=== PATIENT | male | born 1945 | race Caucasian/White ===

== ENCOUNTER 2022-02-04 07:50 | Observation (INO) ==
[2022-02-04] MEDS ORDERED: ASPIRIN 325 MG TABLET PO STA (07:59)
[2022-02-04] MEDS ORDERED: FAMOTIDINE 20 MG/2 ML VIAL IV STA (08:23)
[2022-02-04] MEDS ORDERED: MORPHINE 10 MG/1 ML VIAL IV STA (08:23)
[2022-02-04] MEDS ORDERED: ONDANSETRON 4 MG/2 ML VIAL IV STA (08:23)
[2022-02-04] MEDS ORDERED: MORPHINE 2 MG/1 ML SYRINGE IV STA (08:24)
[2022-02-04 08:32] LABS: Basophils % 0.5 % (0.0-0.8); Eosinophils % 0.9 % (0.00-10.9); Hematocrit 40.6 VOL% (42.0-52.0); Hemoglobin 13.5 GM/DL (14.0-18.0); Immature Granulocytes % 0.5 %; Immature Granulocytes Absolute 0.02 #; Lymphocytes # 1.1 10*3/uL (1.4-4.0); Lymphocytes % 25.5 % (21.2-54.2); Mean Corpuscular HGB Conc 33.3 GM/DL (32-36); Mean Corpuscular Volume 88.1 FL (87-102); Mean Platelet Volume 9.9 FL (9.6-12.0); Monocytes # 0.3 10*3/uL (0.11-0.8); Neutrophils % 65.6 % (38.7-73.9); Red Blood Count 4.61 MC/CUMM (3.8-5.5); Red Cell Distribution Width 13.2 % (9.3-17.3); White Blood Count 4.4 T/CUMM (4-12)
[2022-02-04 08:34] LABS: Platelet Count 135 T/CUMM (130-400)
[2022-02-04 08:44] LABS: PT Patient Result 11.3 SECS (10.1-12.1); Partial Thromboplastin Time 34.7 SECS (23.7-32.9)
[2022-02-04 08:54] LABS: Albumin 4.7 G/DL (3.4-5.0); Bilirubin,Total 0.9 MG/DL (0.20-1.00); Osmolality,Calculated 284.4 MOS/KG (273-304); Total Protein 7.7 G/DL (6.4-8.2)
[2022-02-04] MEDS ORDERED: DEXTROSE 10% 250 ML BAG IV PRN (11:57)
[2022-02-04] MEDS ORDERED: ACETAMINOPHEN 325 MG TABLET PO PRN (11:57)
[2022-02-04] MEDS ORDERED: ONDANSETRON 4 MG/2 ML VIAL IV PRN (11:57)
[2022-02-04] MEDS: INSULIN LISPRO 100 UNIT/ML SUBCUT SCH ×3 (11:57→20:46)
[2022-02-04] MEDS ORDERED: GLUCAGON 1 MG VIAL IM PRN (11:57)
[2022-02-04] MEDS: SODIUM CHLORIDE 0.9% 1,000 ML IV SCH ×2 (12:30→20:43)
[2022-02-04] MEDS ORDERED: ALUM/MAG/SIMETH/LIDO VISC 1:1 30 ML BOTTLE PO ONE (14:34)
[2022-02-04] MEDS: GABAPENTIN 600 MG TABLET PO SCH ×2 (14:51→20:45)
[2022-02-04] MEDS: PANTOPRAZOLE 40 MG TABLET PO SCH (20:45)
[2022-02-04] MEDS: DOCUSATE SODIUM 100 MG CAPSULE PO SCH (20:46)
[2022-02-04] MEDS: amLODIPine 5 MG TABLET PO SCH (20:46)
[2022-02-04] MEDS: INSULIN GLARGINE 100 UNIT/ML SUBCUT SCH (20:48)
[2022-02-05 06:03] LABS: Calcium 8.5 MG/DL (8.5-10.1); Osmolality,Calculated 289.8 MOS/KG (273-304); Potassium 4.4 MMOL/L (3.5-5.1)
[2022-02-05 06:05] LABS: Albumin 3.4 G/DL (3.4-5.0); Bilirubin,Total 0.7 MG/DL (0.20-1.00); Calcium 8.7 MG/DL (8.5-10.1); Osmolality,Calculated 289.8 MOS/KG (273-304); Potassium 4.5 MMOL/L (3.5-5.1); Total Protein 6.5 G/DL (6.4-8.2)
[2022-02-05] MEDS ORDERED: DIAZEPAM 5 MG TABLET PO ONE (07:45)
[2022-02-05] MEDS ORDERED: diphenhydrAMINE CAP 50 MG CAPSULE PO ONE (07:46)
[2022-02-05] MEDS ORDERED: HEPARIN/NACL 0.9% 2 UNITS/ML 2,000 UNIT/1,000 ML BAG IV ONE (07:55)
[2022-02-05] MEDS: GABAPENTIN 600 MG TABLET PO SCH ×2 (08:02→21:32)
[2022-02-05] MEDS ORDERED: fentaNYL 100 MCG/2 ML VIAL ONE (08:02)
[2022-02-05] MEDS ORDERED: MIDAZOLAM 2 MG/2 ML VIAL ONE ×2 (08:02→08:36)
[2022-02-05] MEDS: TRIAMTERENE/HCTZ 37.5-25 MG TABLET PO SCH (08:02)
[2022-02-05] MEDS: PANTOPRAZOLE 40 MG TABLET PO SCH ×2 (08:03→21:32)
[2022-02-05] MEDS: ASPIRIN EC 81 MG TABLET PO SCH (08:03)
[2022-02-05] MEDS: amLODIPine 5 MG TABLET PO SCH ×2 (08:03→21:32)
[2022-02-05] MEDS: LOSARTAN 50 MG TABLET PO SCH (08:03)
[2022-02-05] MEDS: DOCUSATE SODIUM 100 MG CAPSULE PO SCH ×2 (08:03→21:32)
[2022-02-05] MEDS: ROSUVASTATIN 10 MG TABLET PO SCH (08:03)
[2022-02-05] MEDS: INSULIN LISPRO 100 UNIT/ML SUBCUT SCH ×4 (08:08→21:34)
[2022-02-05] MEDS: SODIUM CHLORIDE 0.9% 1,000 ML IV SCH ×3 (08:09→21:35)
[2022-02-05] MEDS ORDERED: NITROGLYCERIN DRIP 50 MG/250 ML BOTTLE IV ONE (08:18)
[2022-02-05] MEDS ORDERED: VERAPAMIL 5 MG/2 ML VIAL ONE (08:18)
[2022-02-05] MEDS ORDERED: HEPARIN 5,000 UNIT/1 ML VIAL ONE (08:28)
[2022-02-05] MEDS ORDERED: PANTOPRAZOLE 40 MG TABLET PO SCH (09:00)
[2022-02-05] MEDS: INSULIN GLARGINE 100 UNIT/ML SUBCUT SCH (21:35)
[2022-02-06] MEDS: SODIUM CHLORIDE 0.9% 1,000 ML IV SCH (00:15)
[2022-02-06 06:17] LABS: Calcium 8.4 MG/DL (8.5-10.1); Osmolality,Calculated 288.3 MOS/KG (273-304); Potassium 4.2 MMOL/L (3.5-5.1)
[2022-02-06 07:21] LABS: Basophils % 0.6 % (0.0-0.8); Eosinophils # 0.1 10*3/uL (0.0-0.87); Hematocrit 36.1 VOL% (42.0-52.0); Hemoglobin 11.7 GM/DL (14.0-18.0); Immature Granulocytes % 0.3 %; Immature Granulocytes Absolute 0.01 #; Lymphocytes # 0.9 10*3/uL (1.4-4.0); Lymphocytes % 28.5 % (21.2-54.2); Mean Corpuscular HGB Conc 32.4 GM/DL (32-36); Mean Corpuscular Volume 90.3 FL (87-102); Mean Platelet Volume 10.2 FL (9.6-12.0); Monocytes # 0.3 10*3/uL (0.11-0.8); Monocytes % 9.7 % (1.7-12.7); Neutrophils % 57.9 % (38.7-73.9); Platelet Count 109 T/CUMM (130-400); Red Cell Distribution Width 13.1 % (9.3-17.3); White Blood Count 3.3 T/CUMM (4-12)
[2022-02-06 07:38] LABS: Hypochromia Slight; Microcytosis Slight
[2022-02-06] MEDS: INSULIN LISPRO 100 UNIT/ML SUBCUT SCH ×2 (07:38→13:01)
[2022-02-06] MEDS ORDERED: LACTATED RINGERS 1,000 ML IV SCH (08:00)
[2022-02-06] MEDS ORDERED: LIDOCAINE 2% 5 ML VIAL ONE (08:42)
[2022-02-06] MEDS ORDERED: propofoL 200 MG/20 ML VIAL IV ONE (08:42)
[2022-02-06] MEDS: ASPIRIN EC 81 MG TABLET PO SCH (09:33)
[2022-02-06] MEDS: ROSUVASTATIN 10 MG TABLET PO SCH (09:55)
[2022-02-06] MEDS: amLODIPine 5 MG TABLET PO SCH (09:55)
[2022-02-06] MEDS: GABAPENTIN 600 MG TABLET PO SCH (09:55)
[2022-02-06] MEDS: PANTOPRAZOLE 40 MG TABLET PO SCH (09:55)
[2022-02-06] MEDS: LOSARTAN 50 MG TABLET PO SCH (09:55)
[2022-02-06] MEDS: DOCUSATE SODIUM 100 MG CAPSULE PO SCH (09:55)
[2022-02-06] MEDS: TRIAMTERENE/HCTZ 37.5-25 MG TABLET PO SCH (09:55)
[2022-02-06 12:52] VITALS: BP 143/67
== END 2022-02-06 14:47 | disposition home or self-care (01) ==
LOC: N.EDINP 07:50 → N.ED 07:50 → N.TELES 10:39
PROVIDERS: ADMIT Family Medicine; ATTEND Family Medicine
PROC: CLCCHCL (ICD-10-PCS; 2022-02-05 08:45)